=== PATIENT | male | born 1960 | race Caucasian/White ===

== ENCOUNTER 2016-10-17 06:43 | Day surgery (SDC) | payer OTHER ==
[~2016-10-17] VITALS: Ht 177.8 cm; Wt 94.5 kg
[~2016-10-17 06:43] MED LIST: DOCU1CAP39 PO; LEVO50TA4 PO
[2016-10-17 07:15] VITALS: BP 110/74; PULSE 81; RESP 18; TEMP 98.7; O2SAT 96
[2016-10-17] MEDS ORDERED: ceFAZolin 2 GM PREMIX 50 ML - implanted port removal IV SCH (07:15)
[2016-10-17] MEDS ORDERED: SODIUM CHLORIDE 0.9% 1000 ML IV SCH (07:15)
[2016-10-17] MEDS ORDERED: LEVO100T5 PO (07:27)
[2016-10-17 08:14] LABS: APTT (PATIENT) 27.7 SEC (24.3-30.1); PROTHROMBIN TIME - PATIENT 11.1 SEC (9.8-11.6)
--- NOTE | 2016-10-17 09:37 | PD.RAD ---
Post Procedure Progress Note Pre Procedure Diagnosis: (1) Lung malignancy Post Procedure Diagnosis: (1) Lung malignancy Procedure Date: Oct 17, 2016 Supervising Radiologist: Fco Granados JR Proceduralist/Assist: Debbie Drake, RT(R), Natalie King RT(R)() Anesthesia: Local Plan of Activity Patient to Unit: ROPU Patient Condition: Good See PACS Report for procedural detail/treatment Central Venous Access Device Procedure 1 Right Internal Jugular Infusaport Removal single lumen Greek: 8 Findings: Port removed without difficulty. No signs of infection. Plan F/U with IR in 10-14 days for a site check Jr. Darwin,Fco Cunningham MD Oct 17, 2016 09:37
[2016-10-17 09:45] VITALS: BP 112/79; PULSE 55; RESP 16; TEMP 97.8; O2SAT 98
[2016-10-17 09:55] VITALS: BP 135/86; PULSE 63; RESP 18; O2SAT 98
--- NOTE | 2016-10-17 14:47 | RADRPT ---
EXAM DATE/TIME: 10/17/2016 07:30 [place] COMPARISON: No previous studies available for comparison. INDICATIONS : Patient is in need of removal of existing right sided Infusaport as it is no longer needed. MEDICAL HISTORY : History of head and neck cancer, thyroid disease. SURGICAL HISTORY : History of right port placement, G-tube placement, lobectomy, thoracotomy, tongue biopsy. ENCOUNTER: Subsequent ACUITY: > 1 year PAIN SCORE: 0/10 Prophylactic antibiotics were administered with appropriate pre-procedure timing. Vancomycin within 2 hrs of procedure, Ancef (or alternative) within 1 hr of procedure. PROCEDURE : 1. Removal of Yckegu-f-vwym. The patient was given the choice of utilizing local anesthetic versus conscious sedation. He chose to proceed with local anesthetic. The risk, benefits and potential complications of Juvavk-n-Yfno removal were discussed. Written conse nt was obtained. The patient was placed supine. The chest wall was prepped in sterile fashion. Full sterile techniqu e was used, including cap, mask, sterile gloves and gown, and a large sterile sheet. Hand hygiene an d 2% chlorhexidine and/or Betadine/alcohol prep was utilized per protocol for cutaneous antisepsis. The skin and subcutaneous tissues were infiltrated with local anesthetic solution. A small incision w as made, the subcutaneous pocket was opened. The port was dissected from the subcutaneous tissues and easily removed in one piece. The pocket incision was closed with subcuticular Vicryl suture. Steri -Strips were applied. The patient tolerated the procedure well and there were no complications. The patient was sent to [facility] anesthesia recovery in stable condition. CONCLUSION: Uncomplicated port removal as above. Fco Granados Jr., MD on October 17, 2016 at 14:44 Board Certified Radiologist. This report was verified electronically.
== END 2016-10-17 10:10 | disposition home or self-care (01) ==
LOC: HRIP 06:43 → HROP 06:43
PROVIDERS: ATTEND Internal Medicine Hematology & Oncology
DX: Z45.2 Encounter for adjustment and management of vascular access device (principal); C34.90 Malignant neoplasm of unspecified part of unspecified bronchus or lung; E07.9 Disorder of thyroid, unspecified
CPT/HCPCS: 36590; 85610; 85730